=== PATIENT | female | born 1980 | race Hispanic/Latino ===

== ENCOUNTER 2018-09-23 17:50 | Emergency (ER) | payer OTHER ==
[2018-09-23 18:34] VITALS: RESP 18; O2SAT 99
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
[2018-09-23 20:01] VITALS: BP 129/73; PULSE 82; TEMP 98.4
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
== END 2018-09-23 19:55 | disposition home or self-care (01) ==
LOC: H.ER 17:50
DX: S09.90XA Unspecified injury of head, initial encounter (principal); S69.91XA Unspecified injury of right wrist, hand and finger(s), initial encounter; V43.62XA Car passenger injured in collision with other type car in traffic accident, initial encounter; Y92.410 Unspecified street and highway as the place of occurrence of the external cause